=== PATIENT | male | born 1990 | race Caucasian/White ===

== ENCOUNTER 2021-02-07 03:38 | Outpatient (CLI) | payer MEDICAID, SELFPAY ==
[2021-02-07 13:26] LABS: Abs Immature Grans 0.02 10^3/uL (0.0-0.06); Absolute Basophil Count 0.06 10^3/uL (0.0-0.2); Absolute Eosinophil Count 0.27 10^3/uL (0.0-0.7); Absolute Lymphocyte Count 2.92 10^3/uL (1.2-3.4); Absolute Monocyte Count 0.61 10^3/uL (0.1-0.8); Absolute Neutrophil Count 3.84 10^3/uL (1.2-6.7); Basophils % 0.8; Eosinophils % 3.5; HCT 44.4 % (40.0-50.0); Immature Grans % 0.3; Lymphocytes % 37.8; MCH 30.7 pg (27.0-33.0); MCHC 33.8 % (32.0-36.0); MCV 90.8 fL (80-95); Monocytes % 7.9; Neutrophils % 49.7; Nucleated RBC 0 %; Platelet Count 235 10^3/uL (130-400); RBC 4.89 10^6/uL (4.36-5.78); RDW 11.5 % (11.8-14.1); RDW-SD 38.5 fL; WBC 7.72 10^3/uL (4.4-10.8)
[2021-02-07 14:04] LABS: Hemoglobin A1C 5.4 % (<5.7)
[2021-02-07 15:28] LABS: ALT 35 U/L (16-63); AST 23 U/L (15-37); Albumin 3.8 g/dL (3.4-5.0); Alkaline Phosphatase 77 U/L (46-116); Anion Gap 8.7 mmol/L (3-11); BUN 10 mg/dL (7-18); Bilirubin, Total 0.6 mg/dL (0.2-1.0); CO2 28.3 mmol/L (21.0-32.0); CREATININE 1.2 mg/dL (0.70-1.30); Calcium 8.9 mg/dL (8.5-10.1); Chloride 107 mmol/L (98-107); Glucose 89 mg/dL (74-106); Potassium 3.9 mmol/L (3.5-5.1); Sodium 144 mmol/L (136-145); TSH 3.16 uIU/mL (0.36-3.74); Total Protein 7.3 g/dL (6.4-8.2)
== END 2021-02-07 03:39 | disposition home or self-care (01) ==
LOC: LBO 03:40
PROVIDERS: PCP Family Medicine; Visit Provider Nurse Practitioner Adult Health
DX: F34.1 Dysthymic disorder (principal)
CPT/HCPCS: 36415; 80053; 83036; 84443; 85025

== ENCOUNTER 2023-05-31 13:41 | Outpatient (CLI) | payer MEDICAID, SELFPAY ==
[2023-05-31 12:17] LABS: HCT 47.8 % (40.0-50.0); HGB 15.9 g/dL (13.5-17.5); MCH 30.2 pg (27.0-33.0); MCHC 33.3 % (32.0-36.0); MCV 91 fL (80-95); MPV 9.7 fL (8.0-11.0); Platelet Count 283 10^3/uL (130-400); RBC 5.26 10^6/uL (4.36-5.78); RDW 11.9 % (11.8-14.1); RDW-SD 39.5 fL; WBC 8.18 10^3/uL (4.4-10.8)
[2023-05-31 12:37] LABS: ALT 35 U/L (16-63); AST 25 U/L (15-37); Albumin 3.6 g/dL (3.4-5.0); Alkaline Phosphatase 84 U/L (46-116); Anion Gap 8.8 mmol/L (3-11); BUN 13 mg/dL (7-18); Bilirubin, Total 0.5 mg/dL (0.2-1.0); CO2 27.2 mmol/L (21.0-32.0); CREATININE 1.1 mg/dL (0.70-1.30); Calcium 9.2 mg/dL (8.5-10.1); Calculated LDL 114 mg/dL (<100); Chloride 104 mmol/L (98-107); Cholesterol 199 mg/dL (<200); Estimated GFR 90.34 (mL/min/1.73m2); Glucose 102 mg/dL (74-106); HDL Cholesterol 40 mg/dL (40-60); Potassium 3.9 mmol/L (3.5-5.1); Sodium 140 mmol/L (136-145); TSH (W/Ref FT4) 4.66 uIU/mL (0.36-3.74); Triglyceride 225 mg/dL (<150)
[2023-05-31 12:57] LABS: Hemoglobin A1C 5.3 % (<5.7)
[2023-05-31 13:05] LABS: FREE T4 1.42 ng/dL (0.76-1.46)
== END 2023-05-31 13:42 | disposition home or self-care (01) ==
LOC: LOS 13:42
PROVIDERS: PCP Nurse Practitioner Family; Visit Provider Nurse Practitioner Family
DX: Z00.00 Encounter for general adult medical examination without abnormal findings (principal); F41.9 Anxiety disorder, unspecified
CPT/HCPCS: 36415; 80053; 80061; 85027; 83036; 84439; 84443

== ENCOUNTER 2024-04-26 09:15 | Outpatient (CLI) | payer OTHER, SELFPAY ==
[2024-04-26 10:56] LABS: HCT 48.6 % (40.0-50.0); HGB 16.3 g/dL (13.5-17.5); MCH 30.8 pg (27.0-33.0); MCHC 33.5 % (32.0-36.0); MCV 92 fL (80-95); MPV 9.6 fL (8.0-11.0); Platelet Count 292 10^3/uL (130-400); RDW 11.4 % (11.8-14.1); RDW-SD 38.4 fL; WBC 10.86 10^3/uL (4.4-10.8)
[2024-04-26 11:16] LABS: ALT 42 U/L (16-63); AST 25 U/L (15-37); Albumin 3.5 g/dL (3.4-5.0); Alkaline Phosphatase 106 U/L (46-116); Anion Gap 6.1 mmol/L (3-11); BUN 14 mg/dL (7-18); Bilirubin, Total 0.31 mg/dL (0.2-1.0); CO2 28.9 mmol/L (21.0-32.0); CREATININE 1.4 mg/dL (0.70-1.30); Calcium 9.4 mg/dL (8.5-10.1); Chloride 105 mmol/L (98-107); Cholesterol 212 mg/dL (<200); Estimated GFR 67.22 (mL/min/1.73m2); Glucose 116 mg/dL (74-106); HDL Cholesterol 33 mg/dL (40-60); Potassium 4.1 mmol/L (3.5-5.1); Sodium 140 mmol/L (136-145); TSH (W/Ref FT4) 5.95 uIU/mL (0.36-3.74); Total Protein 7.8 g/dL (6.4-8.2); Triglyceride 542 mg/dL (<150)
[2024-04-26 11:35] LABS: FREE T4 1.39 ng/dL (0.76-1.46)
[2024-04-26 11:45] LABS: LDL CHOLESTEROL 101 mg/dL (<100)
[2024-04-27 16:02] LABS: Lab Add On Test DONE
[2024-04-27 16:30] LABS: Hemoglobin A1C 5.4 % (<5.7)
== END 2024-04-26 09:16 | disposition home or self-care (01) ==
LOC: LOS 09:15
PROVIDERS: PCP Nurse Practitioner Family; Visit Provider Nurse Practitioner Family
DX: Z00.00 Encounter for general adult medical examination without abnormal findings (principal); R79.89 Other specified abnormal findings of blood chemistry; R21 Rash and other nonspecific skin eruption; R73.09 Other abnormal glucose
CPT/HCPCS: 36415; 80053; 80061; 83721; 85027; 83036; 84439; 84443